=== PATIENT | male | born 2000 | race Caucasian/White ===

== ENCOUNTER 2023-10-31 03:12 | Emergency (ER) | payer OTHER, SELFPAY ==
[2023-10-31 03:17] VITALS: BP 143/99; PULSE 103; RESP 16; TEMP 37.2; O2SAT 99; BMI 37.1
--- NOTE | 2023-10-31 03:33 | ED.GENADULT ---
HPI - General Adult General Chief complaint: Psychiatric Problem/Disorder Stated complaint: Mental Health Time Seen by Provider: 10/31/23 03:33 History of Present Illness HPI narrative: patient states he has been worrying people because he hasnt been sleeping states he hasn' t slept in the past 24 hours. patient denies suicidal or homicidal ideation. took some time off from school and now he feels much better. brought medications with and states he didn't take them today but he does normally take his meds, also states he doesn 't think he needs them. patient is fidgeting and energetic in triage. [employer] brought patient in because of strange behavior at school, running around hugging people A 22-year-old man presenting to the emergency department with behavioral concerns as brought by a [employer]. Apparently has not been sleeping much and has been going around offering hugs. He is spreading melia. Seems to indicate that people might think him to be experiencing ira. He says he took some time off from school having come back this week feeling much better. He does not volunteer information but when asked specifically about the time away, apparently step dad had a heart attack which was the reason for his departure from school he says but I understand from him also that he was hospitalized during majority of these 10 weeks away at a mental health institution in [place]. He was initiated on medication during that time. Bipolar 2 he says. We do review these medications to include escitalopram hydroxyzine quetiapine. He has been taking them apparently but did not this last evening/morning. He denies any substance use, alcohol. Denies suicidal or homicidal ideation. Related Data Home Medications Medication Instructions Recorded Confirmed escitalopram oxalate 10 mg tablet 10 mg PO DAILY 10/31/23 10/31/23 hydroxyzine pamoate 50 mg capsule 50 mg PO Q6-8H PRN 10/31/23 10/31/23 quetiapine 150 mg tablet 150 mg PO QHS 10/31/23 10/31/23 quetiapine 50 mg tablet 50 mg PO DAILY 10/31/23 10/31/23 Allergies Allergy/AdvReac Type Severity Reaction Status Date / Time No Known Drug Allergies Allergy Verified 10/31/23 03:24 Review of Systems Status of ROS: Reports: 6 or more systems reviewed and unremarkable except as noted in History and below PFS PFS Social History Non-prescribed substance use: denies use Exam Narrative: Exam Narrative: Very pleasant. Friendly. Cooperative. Skin is warm and dry. No evidence of self-harm. He is breathing easily. Heart rate is little elevated in a regular rhythm. Lungs appear to be clear. Moving all extremities without difficulty. Cranial nerves 2-12 intact. No evidence of nystagmus. Pupils are equal and brisk. Head is atraumatic. Ambulating smoothly and without difficulty. Speaking fluidly. Speech isn't pressured or slurred. Affect is appropriate. Though unusually positive. Const: Vital Signs, click to edit/add: Vital Signs - 24 hr 10/31/23 03:17 Temperature 98.9 F Pulse Rate [Left P ulse Oximeter] 103 H Respiratory Rate 16 Blood Pressure [Ri ght Upper Arm] 143/99 H Pulse Oximetry 99 Oxygen Delivery Me thod Room Air Documenting provider has reviewed patient's vital signs: yes Course Vital Signs Vital signs: Initial Vital Signs Temperature 98.9 F 10/31/23 03:17 Temperature Source Temporal Artery Scan 10/31/23 03:17 Pulse Rate 103 H 10/31/23 03:17 Respiratory Rate 16 10/31/23 03:17 Blood Pressure 143/99 H 10/31/23 03:17 Blood Pressure Mean 113 H 10/31/23 03:17 Blood Pressure Position Sitting 10/31/23 03:17 Pulse Oximetry 99 10/31/23 03:17 Oxygen Delivery Method Room Air 10/31/23 03:17 Vital Signs Temperature 98.9 F 10/31/23 03:17 Pulse Rate 103 H 10/31/23 03:17 Respiratory Rate 16 10/31/23 03:17 Blood Pressure 143/99 H 10/31/23 03:17 Pulse Oximetry 99 10/31/23 03:17 Oxygen Delivery Method Room Air 10/31/23 03:17 Temperature 98.9 F 10/31/23 03:17 Pulse Rate 103 H 10/31/23 03:17 Respiratory Rate 16 10/31/23 03:17 Blood Pressure 143/99 H 10/31/23 03:17 Pulse Oximetry 99 10/31/23 03:17 Oxygen Delivery Method Room Air 10/31/23 03:17 Medical Decision Making MDM Narrative Medical decision making narrative: Does appear to be mildly manic. Would check urine tox screen. He would be disinclined to admission and I do not believe I would hold him and further, psychiatric beds have been unavailable. He is quite directable. He agrees to take his medications. We give them to him here. He does have close follow-up apparently with therapy and psychiatry the former at least sounds to be scheduled on campus in a couple of days. This is someone with whom he already has a relationship having seen them earlier in the year. After taking his medications was observed to sleep brie I do offer mental health evaluation here in the emergency department. He agrees to do that. While generally disinclined to further cares at this time, I am concerned that Mr. Duran will need more intervention soon. Hopefully can avoid this with regular dosing of medication. We were not able to provide mental health assessment in a timely manner and further it sounds as though there were some technical complications at the DEC service end. Mr. Duran was repeatedly and politely asking to leave. Wandering the department a little bit. fly. U tox was negative See patient discharge plan Lab Data Lab results reviewed: Yes I reviewed the patient's lab results Labs: Lab Results 10/31/23 Range/Units 03:53 Urine Opiates Screen Negative (Negative) Ur Oxycodone Screen Negative (Negative) Urine Methadone Screen Negative (Negative) Ur Propoxyphene Screen Not Reportable Ur Barbiturates Screen Negative (Negative) U Tricyclic Antidepress Negative (Negative) Ur Phencyclidine Scrn Negative (Negative) Ur Amphetamines Screen Negative (Negative) U Methamphetamines Scrn Negative (Negative) U Benzodiazepines Scrn Negative (Negative) Urine Cocaine Screen Negative (Negative) U Marijuana (THC) Screen Negative (Negative) Ur Drug Screen Comment See Note Discharge Plan Discharge Clinical Impression: Bipolar 2 disorder Patient Disposition: Home w/ Parent or Adult Condition: Stable Additional Instructions: I am worried that you are going to have trouble keeping things together. Remember you promised you are going to go back and go to sleep. You do look tired. Please take the nighttime dosing of quetiapine when you get back to the room. You said you could rest today because it was Wednesday. If you are feeling stressed you can also take the hydroxyzine. You promised that you would take medications as prescribed; please do so. If you still can not sleep and things are getting harder for you, please feel free to return to the emergency department. Be sure to keep your appointment this week with your therapist and follow-up with your psychiatrist. Prescriptions: No Action quetiapine 150 mg tablet 150 mg PO QHS escitalopram oxalate 10 mg tablet 10 mg PO DAILY hydroxyzine pamoate 50 mg capsule 50 mg PO Q6-8H PRN quetiapine 50 mg tablet 50 mg PO DAILY Follow Up/Referrals: Provider,Not a Local [Primary Care Provider] - Stand Alone Forms: nGame Info Instructions
[2023-10-31 04:11] LABS: Amphetamine Screen Urine Negative (Negative); Barbiturate Screen Urine Negative (Negative); Benzodiazepines Screen Urine Negative (Negative); Cannabinoid Screen Urine Negative (Negative); Cocaine Screen Urine Negative (Negative); Methadone Screen Urine Negative (Negative); Methamphetamines Screen Urine Negative (Negative); Opiate Screen Urine Negative (Negative); Oxycodone Screen Urine Negative (Negative); Phencyclidine Screen Urine Negative (Negative); Tricyclic Antidepressant Urine Negative (Negative)
--- NOTE | 2023-10-31 06:19 | PC.NURSE ---
DC instructions gone over with patient, no questions about instructions. patient in agreeable with plan. patient states he feels safe to DC home, campus security contacted to bring patient back to campus.
== END 2023-10-31 06:27 | disposition home or self-care (01) ==
PROVIDERS: Emergency Provider Family Medicine
DX: F31.81 Bipolar II disorder (principal)
CPT/HCPCS: 80306; 99283; 99284

== ENCOUNTER 2023-11-01 12:58 | Outpatient (CLI) | payer OTHER, SELFPAY | END 2023-11-01 12:59 | disposition home or self-care (01) | LOC: AMB 11-18 00:53 | PROVIDERS: Visit Provider Family Medicine | DX: R41.82 Altered mental status, unspecified (principal) | CPT/HCPCS: A0425; A0429 ==

== ENCOUNTER 2023-12-08 15:52 | Outpatient (CLI) | payer OTHER, SELFPAY | END 2023-12-08 15:53 | disposition home or self-care (01) | LOC: AMB 12-10 09:29 | PROVIDERS: Visit Provider Emergency Medicine Emergency Medical Services | DX: F29 Unspecified psychosis not due to a substance or known physiological condition (principal) | CPT/HCPCS: A0425; A0429 ==

== ENCOUNTER 2024-10-22 22:27 | Emergency (ER) | payer OTHER, SELFPAY ==
[2024-10-22 22:46] VITALS: BP 141/92; PULSE 99; RESP 16; TEMP 36.6; O2SAT 98; BMI 50.8
--- NOTE | 2024-10-22 23:19 | ED_ITS ---
HPI - General Adult General Time Seen by Provider: 23:19 Date Seen: 10/22/24 Chief complaint: Nausea/Vomiting Stated complaint: nauseated, light headed, med reaction Time Seen by Provider: 10/22/24 23:10 Source: patient and RN notes reviewed Mode of arrival: ambulatory Limitations: no limitations History of Present Illness HPI narrative: Patient is a very pleasant 23-year-old male that is on Latuda and metformin. He takes the metformin for weight maintenance. He took his Latuda and metformin and within about 30 minutes felt very nauseated and faint. He did not throw up. He has had no diarrhea, has had no abdominal pain. He has been on the Latuda for about 6 months, the metformin for a couple of months. Takes the metformin in the evening after his evening meal. He states his doctor told him to take it that way. He has not had problems like this ever before. He has not felt sick or ill with anything, no known ill contacts. No fevers or chills. At this time he feels better and back to baseline, no symptoms now. Related Data Home Medications ?Medication ?Instructions ?Recorded ?Confirmed escitalopram oxalate 10 mg tablet 10 mg PO DAILY 10/31/23 10/31/23 hydroxyzine pamoate 50 mg capsule 50 mg PO Q6-8H PRN 10/31/23 10/31/23 quetiapine 150 mg tablet 150 mg PO QHS 10/31/23 10/31/23 quetiapine 50 mg tablet 50 mg PO DAILY 10/31/23 10/31/23 dextroamphetamine-amphetamine 10 10 mg PO DAILY 10/22/24 10/22/24 mg tablet (Adderall) lurasidone 80 mg tablet (Latuda) 80 mg PO DAILY 10/22/24 10/22/24 metformin 500 mg tablet 500 mg PO DAILY 10/22/24 10/22/24 Allergies Allergy/AdvReac Type Severity Reaction Status Date / Time No Known Drug Allergies Allergy Verified 10/31/23 03:24 Review of Systems Status of ROS: Reports: 6 or more systems reviewed and unremarkable except as noted in History and below [facility] Social History Non-prescribed substance use: denies use Exam Const: Vital Signs, click to edit/add: Vital Signs - 24 hr 10/22/24 22:46 Temperature 97.9 F Pulse Rate [Pulse Oximeter] 99 Respiratory Rate 16 Blood Pressure [Ri ght Upper Arm] 141/92 H Pulse Oximetry 98 Oxygen Delivery Me thod Room Air This 23-year-old male is alert, interactive, no apparent distress. Sclera clear, conjugate gaze, speaking in complete sentences, face atraumatic. CV regular rate and rhythm, no murmur, normal S1-S2. Lungs are clear, good air entry, no wheezing crackles. Abdomen is obese but absolutely soft, nontender. Do not feel any organomegaly or masses but admittedly body habitus could preclude that. In any event, his abdomen is completely soft. Documenting provider has reviewed patient's vital signs: yes Course Course ED Course: Patient and I discussed that with 1 single episode like this, difficult to do an extensive workup. If he has further issues, ongoing problems with co administering these medicines together, may need further interventions. If he has ongoing nausea with taking the medicines together, metformin could potentially be split out at a different time and he could talk to his primary care provider about this. We discussed warning signs of abdominal pain, a bdominal pain associated with any vomiting or fever. At this time, I think it is reasonable to allow him to go home as he had such as small isolated episode. He is to follow up if worsening symptoms. I do not think he needs imaging or labs at this time but would consider this with recurrent or ongoing issues. Vital Signs Vital signs: Initial Vital Signs Temperature 97.9 F 10/22/24 22:46 Temperature Source Temporal Artery Scan 10/22/24 22:46 Pulse Rate 99 10/22/24 22:46 Respiratory Rate 16 10/22/24 22:46 Blood Pressure 141/92 H 10/22/24 22:46 Blood Pressure Mean 108 H 10/22/24 22:46 Blood Pressure Position Sitting 10/22/24 22:46 Pulse Oximetry 98 10/22/24 22:46 Oxygen Delivery Method Room Air 10/22/24 22:46 Vital Signs Temperature 97.9 F 10/22/24 22:46 Pulse Rate 99 10/22/24 22:46 Respiratory Rate 16 10/22/24 22:46 Blood Pressure 141/92 H 10/22/24 22:46 Pulse Oximetry 98 10/22/24 22:46 Oxygen Delivery Method Room Air 10/22/24 22:46 Temperature 97.9 F 10/22/24 22:46 Pulse Rate 99 10/22/24 22:46 Respiratory Rate 16 10/22/24 22:46 Blood Pressure 141/92 H 10/22/24 22:46 Pulse Oximetry 98 10/22/24 22:46 Oxygen Delivery Method Room Air 10/22/24 22:46 Discharge Plan Discharge Clinical Impression: Nausea Patient Disposition: Home, Self-Care Condition: Stable Instructions: Acute Nausea and Vomiting (ED) Additional Instructions: It is certainly not exactly clear why you had this spell of nausea tonight. Continue to monitor, if you have recurrent nausea with taking your 2 medicines together, they should be split out and can talk to your doctor about this. If you develop significant abdominal pain, have abdominal pain with vomiting or fever, please seek re-evaluation. Activity Level: No Restrictions Prescriptions: No Action metformin 500 mg tablet 500 mg PO DAILY dextroamphetamine-amphetamine [Adderall] 10 mg tablet 10 mg PO DAILY lurasidone [Latuda] 80 mg tablet 80 mg PO DAILY Rx Instructions: must administer with food (at least 350 calories) quetiapine 150 mg tablet 150 mg PO QHS escitalopram oxalate 10 mg tablet 10 mg PO DAILY hydroxyzine pamoate 50 mg capsule 50 mg PO Q6-8H PRN quetiapine 50 mg tablet 50 mg PO DAILY Follow Up/Referrals: Provider,Not a Local [Primary Care Provider] - Stand Alone Forms: PredPol Info Instructions
== END 2024-10-22 23:53 | disposition home or self-care (01) ==
LOC: ED 23:40
PROVIDERS: Emergency Provider Family Medicine
DX: R11.0 Nausea (principal)
CPT/HCPCS: 99282

== ENCOUNTER 2025-03-21 13:51 | Emergency (ER) | payer OTHER, SELFPAY ==
--- OUTSIDE RECORDS SUMMARY | 2025-03-21 13:52 | XMS_ITS | Clinical Summary ---
Author Organization [employer] [facility] Address [address] [place] [id number] Care Team Providers Care Management Lecturer Name Role Phone None Primary Care Provider Unavailabl e Allergies No known active allergies Medications lurasidone (LATUDA) 80 mg tabletIndicatio ns:Bipolar 1 disorder (HC) Take 1 Tablet (80 mg) by mouth with dinner. 30 Tablet 12/15/2023 1:55 PM [employer] 12/15/2023 Active dextroamphetami ne-amphetamine (ADDERALL XR) 10 mg Extended-Releas e capsule Take 1 Capsule by mouth once daily. 11/16/2024 Active METFORMIN-BLOOD SUGAR DIAGNOST MISC Take 1,000 mg by mouth once daily. 08/25/2024 Active Active Problems Problem Noted Date Diagnosed Date Hyperglycemia 12/09/2023 Morbid obesity 11/02/2023 Bipolar 2 disorder 11/02/2023 Resolved Problems Problem Noted Date Diagnosed Date Resolved Date Cocaine use 12/09/2023 07/19/2024 Encounters Date Type Department Care Team Description 01/12/2025 Patient Outreach [facility] Care Management - Care Management Navigation/[facility] [employer] [address] [place] [id number] Halie Escobedo-Community Resource Navigation (Care Guide Community Resource Navigation/) 12/27/2024 Telephone [facility] [address] [place] [address] Sydnie Brito, DO Lab (LOOKING FOR RESULTS ) from Last 3 Months Immunizations Immunization Administration Dates Next Due HPV 9 (Gardasil 9) 07/19/2024 Influenza Virus, Unspecified 09/24/2023 Influenza, CCIIV3 (Age >=6 MO) (Egg Free) 2023 Influenza, Injectable, Mdck, Quadrivalent, W/preservative 09/02/2022,07/15/2021 Tdap 07/19/2024 Social History Tobacco Use Types Packs/Day Years Used Date Smoking Tobacco: Never Smokeless Tobacco: Never Tobacco Cessation:Counseling Given: No Alcohol Use Standard Drinks/Week Comments Not Currently 0 (1 standard drink = 0.6 oz pur e alcohol) 1-2 monthly PHQ-2 Answer Date Recorded PHQ-2 TOTAL SCORE 0 07/19/2024 Social Connections Answer Date Recorded Do you often feel lonely or isolated from those around you? 4 12/18/2024 Alcohol Use Answer Date Recorded How often do you have a drink containing alcohol ? 0 11/02/2023 How many drinks containing a lcohol do you have on a typical day when you are drinking? 0 11/02/2023 How often do you have five or more drinks on one occasion? 0 11/02/2023 Financial Resource Strain Answer Date R ecorded Difficulty of Paying Living Expenses 3 12/18/2024 Difficulty of Paying Living Expenses Not on file 12/18/2024 Food Insecurity Answer Date Recorded Do you worry your food will run out before you are able to buy more? 1 12/18/2024 Transportation Needs Answer Date Record ed Does lack of transportation keep you from medica l appointments? 2 12/18/2024 Does lack of transportation keep you from work, meetings or getting things that you need? 2 12/18/2024 Housing Stability Answer Date Recorded What is your housing situation today? 1 12/18/2024 Interpersonal Safety Answer Date Record ed Are you being hit, kicked, p ushed or yelled at (see row info)? No 12/09/2023 Interpersonal Safety Abuse 12 - 18 Not on file 12/09/2023 Interpersonal Safety Ambulatory Vulnerability No t on file 12/09/2023 Utilities Answer Date Recorded Do you have trouble paying f or utilities (for example, heat, electricity, water, phone)? 1 12/18/2024 Sex and Gender Information Value Date Recorded Sex Assigned at Not on file Legal Sex Male 1:55 PM [employer] Gender Identity Not on file Sexual Orientation Not on file Obstetrics History Last Filed Vital Signs Vital Sign Reading Time Taken Comments Blood Pressure 132/84 12/18/2024 4:12 PM [employer] Pulse 99 12/18/2024 4:12 PM [employer] Temperature 36.4 C (97.6 F) 12/16/2023 9:02 AM POULTRY DEBE[employer]ER Respiratory Rate 16 12/16/2023 9:02 AM POULTRY DEBE[employer]ER Oxygen Saturation 99% 11/15/2024 3:07 PM P[employer]LTRY DEBE[employer]ER Inhaled Oxygen Concentration - - Weight 138.3 kg (304 lb 12.8 oz) 12/18/2024 3:39 PM [employer]LTRY DEBE[employer] Height 169 cm (5' 6.54) 11/15/2024 3:07 PM [employer] DE[employer] Body Mass Index 48.4 11/15/2024 3:07 PM [employer] Plan of Treatment Health Maintenance Due Date Last Done Comments Hepatitis B series for 19+ (1 of 3 - 19+ 3-dose series) 2021 HPV series for age 9-26 (2 - Male 3-dose series) 08/16/2024 07/19/2024 Depression screening for age 12+ 07/19/2025 07/19/2024, 11/01/2023 BMI (ht and wt on same day) for age 18+ 11/15/2025 11/15/2024, 07/19/2024 Tetanus booster 07/19/2034 07/19/2024 HIV for age 15-65 Completed 07/19/2024, (Verified in Care Everywhere or Patient Record) Hepatitis C screening for age 18-79 Completed 07/19/2024 Tdap Completed 07/19/2024 COVID-19 vaccine series Completed 09/05/2024, 09/02 Influenza Vaccine Completed 09/05/2024, , 09/02/2022, Additional history exists Pneumococcal series for age 6-49 Aged Out No longer eligible based on patient's age to complete this topic Procedures Procedure Name Priority Date/Time Associated Diagnosis Comments HIV 1/2 ANTIGEN/ANTIBODY FOURTH GENERATION W/RFL ([facility]) Routine 07/19/2024 3:33 PM CDT Screening for HIV (human immunodeficiency virus) ANTI HCV Routine 07/19/2024 3:33 PM CDT Need for hepatitis C screening test from Last 3 Months or Most Recently Relevant to Health Maintenance Results * HIV 1/2 ANTIGEN/ANTIBODY FOURTH GENERATION W/RFL ([facility]) (07/19/2024 3:33 PM CDT) HIV AG/AB, 4TH GEN NON-REACT RYAN NON-REACT RYAN [facility] Comment: HIV-1 antigen and HIV-1/HIV-2 antibodies were not detected. There is no laboratory evidence of HIV infection. PLEASE NOTE: This information has been disclosed to you from records whose confidentiality may be protected by state law. If your state requires such protection, then the state law prohibits you from making any further disclosure of the information without the specific written consent of the person to whom it pertains, or as otherwise permitted by law. A general authorization for the release of medical or other information is NOT sufficient for this purpose. For additional information please refer to http://education.Octmami/faq/SSR117 (This link is being provided for informational/ educational purposes only.) The performance of this assay has not been clinically validated in patients less than 2 years old. Blood BLOOD SPECIMEN / Unknown 07/19/2024 3:33 PM CDT 07/19/2024 3:33 PM CDT Sydnie Brito DO SEND OUTS Final Resu lt [employer] [facility] [address] [place] [address], [facility] [address] [place] [address] * ANTI HCV (07/19/2024 3:33 PM CDT) HEPATITIS C ANTIBODY NON-REACTI VE NON-REACT RYAN [facility] Comment: HCV antibody was non-reactive. There is no laboratory evidence of HCV infection. In most cases, no further action is required. However, if recent HCV exposure is suspected, a test for HCV RNA (test code 13594) is suggested. For additional information please refer to http://education.Octmami/faq/BHN87v4 (This link is being provided for informational/ educational purposes only.) Blood BLOOD SPECIMEN / Unknown 07/19/2024 3:33 PM CDT 07/19/2024 3:33 PM CDT Sydnie Brito DO SEND OUTS Final Resu lt [employer] [facility] [address] [place] [address], [facility] [address] [place] [address] from Last 3 Months or Most Recently Relevant to Health Maintenance [place] [address] [address] [address] CARE ATTN: [place] [address] Advance Directives * Full Code (Latest Code Status on File) Date Activated Date Inactivated Comments 12/09/2023 9:52 AM 12/16/2023 5:53 PM Question Answer Comments Code Status Discussion: Other * Full Code Date Activated Date Inactivated Comments 11/03/2023 9:45 AM 11/10/2023 1:02 PM Question Answer Comments Code Status Discussion: Reviewed Preferences * Full Code Date Activated Date Inactivated Comments 11/02/2023 3:22 AM 11/03/2023 9:45 AM Question Answer Comments Code Status Discussion: Unable to Assess Preferences, Provider to review later Care Teams Management Lecturer Relationship Specialty Start Date End Date None . PCP - General 11/01/23
[2025-03-21 13:58] VITALS: BP 137/98; PULSE 110; RESP 20; TEMP 36.6; O2SAT 98; BMI 46.6
--- NOTE | 2025-03-21 14:17 | ED_ITS ---
HPI - General Adult General Chief complaint: Epistaxis/Nosebleed Stated complaint: nose bleed, feeling generally unwell Time Seen by Provider: 03/21/25 13:54 Source: patient Mode of arrival: ambulatory Limitations: no limitations History of Present Illness HPI narrative: 24-year-old male coming in today with a nosebleed. Nose started bleeding around 10:00 a.m.. He put a tampon inside his nose. Left it in there for an unknown amount of time. When he pulled out the nose started bleeding again. Patient has a history of ADHD and bipolar disorder. He is on Adderall, hydroxyzine, Latuda, metformin. Sees a therapist and a psychiatrist regularly. Patient is currently not having nose bleed. He is asking for an examination of his nose to make sure that it is normal. Related Data Home Medications ?Medication ?Instructions ?Recorded ?Confirmed hydroxyzine pamoate 50 mg capsule 50 mg PO Q6-8H PRN 0 10/31/23 03/21/25 dextroamphetamine-amphetamine 10 10 mg PO DAILY 03/21/25 mg tablet (Adderall) metformin 500 mg tablet 500 mg PO DAILY 10/22/24 lurasidone 80 mg tablet (Latuda) 120 mg PO DAILY 02/2803/21/25 magnesium oxide PO 02/28/25 02/28/25 Allergies Allergy/AdvReac Type Severity Reaction Status Date / Time No Known Drug Allergies Allergy Verified 03/21/25 13:56 Review of Systems Status of ROS: Reports: 6 or more systems reviewed and unremarkable except as noted in History and below PFSH PFSH Social History Non-prescribed substance use: denies use Exam Narrative: Exam Narrative: Obese, well-developed patient in no acute distress. Alert and oriented. Answers questions appropriately. Mood and affect are appropriate. Thoughts are goal oriented and rational. No tangential or magical thinking noted. Patient speaks in full sentences without needing to catch his breath. Speech is slightly pressured but he can be interrupted. HEENT: Normocephalic atraumatic. Pupils are equally round reactive to light. Extraocular muscles are intact. Conjunctivae are moist without any icterus noted. Moist mucous membranes. Posterior pharynx is normal. Nares patent. Patient has a very small exposed superficial blood vessel on the right septum that is currently not bleeding. Skin: Well perfused without any obvious rashes. Const: Vital Signs, click to edit/add: Vital Signs - 24 hr 03/21/25 13:58 Temperature 97.9 F Pulse Rate [Pulse Oximeter] 110 H Respiratory Rate 20 Blood Pressure [Ri ght Upper Arm] 137/98 H Pulse Oximetry 98 Oxygen Delivery Me thod Room Air Course Vital Signs Vital signs: Initial Vital Signs Temperature 97.9 F 03/21/25 13:58 Temperature Source Temporal Artery Scan 03/21/25 13:58 Pulse Rate 110 H 03/21/25 13:58 Respiratory Rate 20 03/21/25 13:58 Blood Pressure 137/98 H 03/21/25 13:58 Blood Pressure Mean 111 H 03/21/25 13:58 Pulse Oximetry 98 03/21/25 13:58 Oxygen Delivery Method Room Air 03/21/25 13:58 Vital Signs Temperature 97.9 F 03/21/25 13:58 Pulse Rate 110 H 03/21/25 13:58 Respiratory Rate 20 03/21/25 13:58 Blood Pressure 137/98 H 03/21/25 13:58 Pulse Oximetry 98 03/21/25 13:58 Oxygen Delivery Method Room Air 03/21/25 13:58 Temperature 97.9 F 03/21/25 13:58 Pulse Rate 110 H 03/21/25 13:58 Respiratory Rate 20 03/21/25 13:58 Blood Pressure 137/98 H 03/21/25 13:58 Pulse Oximetry 98 03/21/25 13:58 Oxygen Delivery Method Room Air 03/21/25 13:58 Medical Decision Making [facility] [place] Narrative Medical decision making narrative: 24-year-old male with an episode of epistaxis now resolved. We discussed symptom management if this recurs. Discharge Plan Discharge Clinical Impression: Epistaxis Patient Disposition: Home, Self-Care Condition: Stable Instructions: Nosebleed (ED) Prescriptions: No Action magnesium oxide PO metformin 500 mg tablet 500 mg PO DAILY dextroamphetamine-amphetamine [Adderall] 10 mg tablet 10 mg PO DAILY lurasidone [Latuda] 80 mg tablet 120 mg PO DAILY Rx Instructions: must administer with food (at least 350 calories) hydroxyzine pamoate 50 mg capsule 50 mg PO Q6-8H PRN Follow Up/Referrals: Provider,Not a Local [Primary Care Provider, Family Practice] Stand Alone Forms: MyHealth Info Instructions
== END 2025-03-21 14:39 | disposition home or self-care (01) ==
LOC: ED 14:39
PROVIDERS: Emergency Provider Family Medicine
DX: R04.0 Epistaxis (principal)
CPT/HCPCS: 99282; 99283

== ENCOUNTER 2025-03-22 09:39 | Outpatient (CLI) | payer OTHER, SELFPAY | END 2025-03-22 09:40 | disposition home or self-care (01) | LOC: AMB 03-23 10:03 | PROVIDERS: Visit Provider Student in an Organized Health Care Education/Training Program | DX: F29 Unspecified psychosis not due to a substance or known physiological condition (principal) | CPT/HCPCS: A0425; A0429 ==